=== PATIENT | female | born 1980 | race Caucasian/White ===

== ENCOUNTER 2020-07-11 09:05 | Emergency (ER) | payer OTHER ==
[~2020-07-11 09:05] MED LIST: CLONAZEPAM 1MG T1 MG PO; MOTRIN600 MG PO; OXYCODONE-ACET1 EAC1 PO; TOPAMAX100 MG PO; VRAYLAR1.5 MG PO
[2020-07-11 09:38] LABS: BASOPHIL 0.4 % (0-2); EOSINOPHIL 0.7 % (0-5); HCT 40.7 % (37.0-47.0); HGB 13.2 g/dl (12.5-16.0); LYMPHOCYTE 29.1 % (15-48); MCH 27.6 pg (25.0-31.0); MCHC 32.4 g/dL (32.0-36.0); MONOCYTE 13.8 % (0-12); MPV 13.8 fL (6.0-9.5); NEUTROPHIL 54.6 % (41-80); NRBC 0; PLT 119 K/uL (150-400); RBC 4.79 M/uL (4.20-5.40); WBC 2.8 K/uL (4.0-10.5)
[2020-07-11 09:51] LABS: ALBUMIN 3.3 g/dL (3.4-5.0); BILIRUBIN - TOTAL 0.3 mg/dL (0.2-1.0); BUN/CREAT RATIO (CALC) 11.9 RATIO; CREATININE 0.59 mg/dL (0.51-0.95); POTASSIUM 4.1 mmol/L (3.5-5.1); TOTAL PROTEIN 7.3 g/dL (6.4-8.2)
[2020-07-11 09:56] LABS: INR 0.98 (0.9-1.2); PROTHROMBIN TIME 12.3 SECONDS (11.4-13.6)
[2020-07-11 09:57] LABS: PTT 33.7 SECONDS (22.2-34.7)
[2020-07-11] MEDS ORDERED: GUAIFENESIN-PS1 EACH PO (11:45)
[2020-07-11] MEDS ORDERED: AUGMENTIN 875-1 EACH PO (11:45)
== END 2020-07-11 12:29 | disposition home or self-care (01) ==
LOC: FER 09:05
PROVIDERS: Emergency Medicine
DX: J32.4 Chronic pansinusitis (principal); R42 Dizziness and giddiness; R07.89 Other chest pain; F17.290 Nicotine dependence, other tobacco product, uncomplicated; Z88.6 Allergy status to analgesic agent
CPT/HCPCS: 36415; 70450; 71045; 80053; 84484; 85025; 85610; 85730; 93005